=== PATIENT | female | born 1955 | race Asian ===

== ENCOUNTER 2016-07-15 15:25 | Emergency (ER) | payer OTHER ==
[~2016-07-15] VITALS: Ht 167.6 cm; Wt 108.0 kg
[2016-07-15 15:55] LABS: PLATELET COUNT 268 K/uL (152-353)
[2016-07-15 16:10] LABS: POTASSIUM 4.4 mmol/L (3.6-5.2)
[2016-07-15 20:39] VITALS: BP 140/84; TEMP 97.9
== END 2016-07-15 20:49 | disposition home or self-care (01) ==
LOC: ED 15:25
DX: R45.851 Suicidal ideations (principal); F32.89 Other specified depressive episodes
CPT/HCPCS: 36415; 80053; 80307; 80320; 80329; 81000; 85027; 99285; G0479

== ENCOUNTER 2022-02-26 07:17 | Emergency (ER) | payer OTHER ==
[~2022-02-26] VITALS: Ht 165.1 cm; Wt 120.7 kg
[2022-02-26 07:17] VITALS: TEMP 98.2
[~2022-02-26 07:17] MED LIST: ALEVE220 M1 PO; ALLO300T23 PO; ALUMSUS6 PO; CARV3.12 PO; DICLOFENAC SODIUM1 % TD; DIVALPROEX500 M1 PO; FENOFIBRATE160 MG PO; MAGN400T4 PO; MELATONIN10 M2 PO; NOVOLOG100 UNIT/M SC; OMEPRAZOLE DR20 MG PO; PAIN RELIEF325 MG PO; QUET300T PO; SERT50TA PO; SIMV20TA2 PO; TRAMADOL HYDROC50 MG PO; VITAMIN D-31000 UNI1 PO
[2022-02-26 09:30] VITALS: BP 150/82
== END 2022-02-26 09:30 | disposition still patient (30) ==
LOC: ED 07:26
DX: R55 Syncope and collapse (principal); G40.909 Epilepsy, unspecified, not intractable, without status epilepticus
CPT/HCPCS: 99283